=== PATIENT | female | born 1975 | race Caucasian/White ===

== ENCOUNTER 2021-12-12 14:17 | Emergency (ER) | payer MEDICARE, MEDICAID, SELFPAY ==
[2021-12-12 14:24] VITALS: BP 139/83; PULSE 96; RESP 16; TEMP 36.4; O2SAT 100
--- NOTE | 2021-12-12 15:52 | PC.NURSE ---
pt overhead on phone in lobby complaining about wait time. pt speaking clearly and in full sentences. pt agitated, but in no acute distress.
[2021-12-12 16:10] VITALS: BP 147/93; PULSE 74; RESP 16; O2SAT 99
--- NOTE | 2021-12-12 16:37 | PC.NURSE ---
emilie from poison control contacted regarding pts potential contact with hydrocholoric acid. advised to treat respiratory symptoms with bronchodilators and steroids. pt just c/o sores to her gums.
--- NOTE | 2021-12-12 16:38 | ED.ALLEREA ---
HPI - Allergic Reaction General Chief complaint: Allergic Reaction Stated complaint: mouth stiffness, shortness of breath Time Seen by Provider: 12/12/21 15:43 History of Present Illness HPI narrative: 46-year-old female presents to the emergency room for evaluation of painful blisters on her gingiva. Ports ulcers have been present for approximately 1 week, and has been taking Orajel with no relief. Oral pain radiates up into her head causing her to have headaches. Patient also states that she has been exposed to hydrofluoric acid, sprays it as a mist on cow utters. Denies fevers, chest pain, shortness of breath. Denies difficulty swallowing Related Data Home Medications Medication Instructions Recorded Confirmed tolterodine 2 mg capsule,extended 2 mg PO DAILY 12/12/21 12/12/21 release 24 hr Allergies Allergy/AdvReac Type Severity Reaction Status Date / Time fentanyl Allergy Unknown rash Verified 07/20/15 11:46 ibuprofen Allergy Unknown Unknown Verified 12/12/21 16:12 Review of Systems Review of Systems: CONSTITUTIONAL: Denies fever, chills, or sweats. EYES: Denies visual changes, redness, or discharge. ENT: Reports blisters on gingiva CARDIOVASCULAR: Denies chest pain, palpitations, or edema. RESPIRATORY: Denies cough or dyspnea. GASTROINTESTINAL: Denies abdominal pain, nausea, vomiting, or diarrhea. GENITOURINARY: Denies dysuria or hematuria. SKIN: Denies rash or itching. MUSCULOSKELETAL: Denies back pain, joint pain, or myalgia. NEUROLOGIC: Denies headache, numbness, dizziness, or weakness. PSYCHIATRIC: Denies anxiety or depression. PMFSH Family History Family History Father Family history of malignant neoplasm of kidney Grandparent Carcinoma of colon Other Family history of arthritis Family history of mental disorder Hypertension Social History Social History Smoking status: Heavy tobacco smoker Alcohol intake: never Exam Narrative: GENERAL: Well-appearing, well-nourished, no physical limitations, and in no acute distress. HEAD: Normocephalic, atraumatic. EYES: Conjunctivae normal, PERRLA and EOMI. ENT: Multiple ulcerative lesions scattered on the lower gingiva NECK: Supple. No meningeal signs. No adenopathy or masses. CHEST: Clear to auscultation. No respiratory distress. No wheezes rales or rhonchi. No tenderness. HEART: Regular rate and rhythm. No murmur heard. Normal peripheral pulses. EXTREMITIES: Normal range of motion. No edema. No clubbing or cyanosis SKIN: Warm, dry, no rash. No noted wounds NEURO: No focal deficits. Alert and oriented x3. MAEW. CN's II-XI intact bilaterally, normal gait PSYCH: Cooperative. Normal mood and affect. 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 Tomas) 120 mL suspension 10 ml PO TID Qty: 120 0RF Rx Instructions: diphenhydramine 12.5 mg/5 mL oral elixir 40 mL; Lidocaine Viscous 2 % mucosal solution 40 mL; Maalox 200 mg-200 mg-20 mg/5 mL oral suspension 40 mL; Per 120 mL No Action tolterodine 2 mg Capsule,Exte
[2021-12-12] MEDS: LIDOCAINE HCL 2% VISC SOLN 15 ML UDC PO (16:58)
[2021-12-12 18:02] VITALS: RESP 16; O2SAT 98
== END 2021-12-12 17:54 | disposition home or self-care (01) ==
PROVIDERS: Emergency Provider Nurse Practitioner Family; PCP Family Medicine
DX: B08.6 Parapoxvirus infections (principal); B34.9 Viral infection, unspecified
CPT/HCPCS: 96372; 99283; J1100